=== PATIENT | male | born 2000 | race American Indian/Alaskan Native ===

== ENCOUNTER 2020-09-11 08:00 | Outpatient (CLI) | payer OTHER ==
[~2020-09-11 08:00] MED LIST: FLOVENT; VENTOLIN
== END 2020-09-11 08:30 | disposition home or self-care (01) ==
LOC: PPH VACUNA 08:00
DX: Z23 Encounter for immunization (principal)

== ENCOUNTER 2022-10-22 01:14 | Emergency (ER) | payer OTHER ==
[~2022-10-22] VITALS: Ht 180.3 cm; Wt 108.9 kg
[2022-10-22] MEDS ORDERED: CEPHALEXIN500 MG PO (04:08)
== END 2022-10-22 04:11 ==
LOC: ER 01:14
DX: S61.411A Laceration without foreign body of right hand, initial encounter (principal); W25.XXXA Contact with sharp glass, initial encounter; Y93.89 Activity, other specified; Y92.89 Other specified places as the place of occurrence of the external cause; Y99.8 Other external cause status; Z91.018 Allergy to other foods